=== PATIENT | male | born 1970 | race Asian ===

== ENCOUNTER 2018-06-12 11:19 | Emergency (ER) | payer OTHER ==
[~2018-06-12] VITALS: Ht 170.2 cm; Wt 74.8 kg
[2018-06-12 11:49] VITALS: Ht 170.2 cm; Wt 74.8 kg
[2018-06-12 12:31] LABS: BASOPHIL % 0.3 % (0-2); PLATELET COUNT 187 x10^3mcL (130-400); RED CELL DISTRIBUTION WIDTH 12.5 % (11.5-14.5)
[2018-06-12 12:44] LABS: CALCIUM 8.5 mg/dL (8.5-10.1); CARBON DIOXIDE 31.8 mmol/L (21-32); CHLORIDE SERUM 104 mmol/L (98-107); GFR1 > 60 mL/min; GLUCOSE SERUM 128 mg/dL (74-106); SODIUM SERUM 141 mmol/L (136-145)
[2018-06-12 12:49] LABS: ALBUMIN 4.1 g/dL (3.4-5.0); ALKALINE PHOSPHATASE 71 U/L (46-116); ALT/SGPT 31 U/L (16-63); AST/SGOT 21 U/L (15-37); BILIRUBIN TOTAL 0.83 mg/dL (0.20-1.00); TOTAL PROTEIN, SERUM 7.7 g/dL (6.4-8.2)
[2018-06-12 13:58] VITALS: BP 149/95
== END 2018-06-12 13:57 | disposition home or self-care (01) ==
LOC: ED 11:19
PROVIDERS: Emergency Medicine
DX: R31.9 Hematuria, unspecified (principal); N23 Unspecified renal colic; E78.5 Hyperlipidemia, unspecified
CPT/HCPCS: 36415